=== PATIENT | female | born 1985 | race African-American/Black ===

== ENCOUNTER 2018-09-29 12:09 | Inpatient (IN) ==
[2018-09-29] MEDS ORDERED: HYDROmorphone 2 MG/1 ML VIAL IV STA (12:32)
[2018-09-29] MEDS ORDERED: ONDANSETRON 4 MG/2 ML VIAL IV STA (12:32)
[2018-09-29 15:42] LABS: Albumin 3.8 G/DL (3.4-5.0); Bilirubin,Total 0.6 MG/DL (0.2-1.0); Calcium 8.9 MG/DL (8.5-10.1); Osmolality,Calculated 277.3 MOS/KG (273-304); Risk Ratio 2.98; Total Protein 7.4 G/DL (6.4-8.3); VLDL CHOLESTEROL 13.2 MG/DL
[2018-09-29 15:59] LABS: Basophils % 0.4 % (0.0-0.8); Eosinophils # 0.1 10*3/uL (0.0-0.87); Eosinophils % 1.6 % (0.00-10.9); Hematocrit 37.9 VOL% (35.7-47.0); Immature Granulocytes % 0.7 %; Immature Granulocytes Absolute 0.04 #; Lymphocytes # 1.8 10*3/uL (1.4-4.0); Lymphocytes % 31.4 % (21.3-54.2); Mean Corpuscular HGB Conc 31.7 GM/DL (32-36); Mean Corpuscular Volume 88.3 FL (87-102); Mean Platelet Volume 11.2 FL (9.6-12.0); Monocytes % 5.7 % (1.7-12.7); Neutrophils % 60.2 % (38.7-73.9); Platelet Count 231 T/CUMM (130-400); Red Blood Count 4.29 MC/CUMM (3.8-5.5); Red Cell Distribution Width 13.2 % (9.3-17.3); White Blood Count 5.7 T/CUMM (4-12)
[2018-09-29] MEDS: SODIUM CHLORIDE 0.9% 1,000 ML IV SCH (16:45)
[2018-09-29] MEDS: MORPHINE 4 MG/1 ML VIAL IV PRN ×2 (16:50→21:12)
[2018-09-29] MEDS: FAMOTIDINE 20 MG/2 ML VIAL IV SCH (20:38)
[2018-09-30] MEDS: SODIUM CHLORIDE 0.9% 1,000 ML IV SCH ×3 (00:07→16:39)
[2018-09-30 05:50] LABS: Basophils % 0.6 % (0.0-0.8); Eosinophils # 0.3 10*3/uL (0.0-0.87); Eosinophils % 5.8 % (0.00-10.9); Hematocrit 38.1 VOL% (35.7-47.0); Hemoglobin 11.7 GM/DL (12.0-16.0); Immature Granulocytes % 0.4 %; Immature Granulocytes Absolute 0.02 #; Lymphocytes # 1.2 10*3/uL (1.4-4.0); Lymphocytes % 24.5 % (21.3-54.2); Mean Corpuscular HGB Conc 30.7 GM/DL (32-36); Mean Corpuscular Volume 88.4 FL (87-102); Mean Platelet Volume 11.4 FL (9.6-12.0); Monocytes % 8.1 % (1.7-12.7); Neutrophils % 60.6 % (38.7-73.9); Platelet Count 215 T/CUMM (130-400); Red Blood Count 4.31 MC/CUMM (3.8-5.5); White Blood Count 4.7 T/CUMM (4-12)
[2018-09-30 06:17] LABS: Albumin 3.1 G/DL (3.4-5.0); Bilirubin,Total 1.1 MG/DL (0.2-1.0); Calcium 8.2 MG/DL (8.5-10.1); Osmolality,Calculated 274.5 MOS/KG (273-304); Thyroid Stimulating Hormone 1.12 uIU/ml (0.358-3.74); Total Protein 6.5 G/DL (6.4-8.3)
[2018-09-30] MEDS: FAMOTIDINE 20 MG/2 ML VIAL IV SCH ×2 (08:39→20:22)
[2018-09-30] MEDS: MORPHINE 4 MG/1 ML VIAL IV PRN ×3 (08:39→23:59)
[2018-09-30] MEDS: POTASSIUM CHLORIDE RIDER 10 MEQ in PREMIX 1 EACH IV PRN ×3 (08:39→12:27)
[2018-09-30] MEDS: amLODIPine 10 MG TABLET PO SCH (11:14)
[2018-09-30] MEDS: ONDANSETRON 4 MG/2 ML VIAL IV PRN ×2 (12:26→16:36)
[2018-10-01] MEDS: SODIUM CHLORIDE 0.9% 1,000 ML IV SCH (02:39)
[2018-10-01 05:43] LABS: Basophils # 0.1 10*3/uL (0.0-0.2); Eosinophils # 0.5 10*3/uL (0.0-0.87); Eosinophils % 8.9 % (0.00-10.9); Hematocrit 37.7 VOL% (35.7-47.0); Immature Granulocytes % 0.2 %; Immature Granulocytes Absolute 0.01 #; Lymphocytes # 1.6 10*3/uL (1.4-4.0); Lymphocytes % 32.1 % (21.3-54.2); Mean Corpuscular HGB Conc 31.8 GM/DL (32-36); Mean Corpuscular Volume 87.3 FL (87-102); Monocytes % 7.5 % (1.7-12.7); Neutrophils % 50.3 % (38.7-73.9); Platelet Count 232 T/CUMM (130-400); Red Blood Count 4.32 MC/CUMM (3.8-5.5); Red Cell Distribution Width 13.1 % (9.3-17.3); White Blood Count 5.1 T/CUMM (4-12)
[2018-10-01 06:19] LABS: Albumin 3.3 G/DL (3.4-5.0); Bilirubin,Total 0.4 MG/DL (0.2-1.0); Calcium 8.5 MG/DL (8.5-10.1); Osmolality,Calculated 278.3 MOS/KG (273-304); Total Protein 6.8 G/DL (6.4-8.3)
[2018-10-01 07:53] VITALS: BP 152/93
[2018-10-01] MEDS: amLODIPine 10 MG TABLET PO SCH (09:01)
[2018-10-01] MEDS: FAMOTIDINE 20 MG/2 ML VIAL IV SCH (09:01)
== END 2018-10-01 11:55 | disposition home or self-care (01) | DRG 440 ==
LOC: N.ED 12:09 → N.EDINP 13:58 → SUATTDRO 13:58 → N.EDINP 16:08 → N.2E 16:27
PROVIDERS: ADMIT Internal Medicine Nephrology; ATTEND Phlebology